=== PATIENT | male | born 1950 ===

== ENCOUNTER 2016-05-31 16:40 | Observation (INO) ==
[2016-05-31] MEDS ORDERED: MORPHINE 2 MG/1 ML SYRINGE IV STA (17:53)
[2016-05-31] MEDS ORDERED: ASPIRIN 325 MG TABLET PO STA (17:53)
[2016-05-31] MEDS ORDERED: ONDANSETRON 4 MG/2 ML VIAL IV STA (17:53)
[2016-05-31] MEDS ORDERED: ALUM/MAG/SIMETH/LIDO VISC 1:1 30 ML BOTTLE PO STA (17:53)
[2016-05-31] MEDS ORDERED: METOPROLOL TARTRATE 25 MG TABLET PO STA (17:53)
[2016-05-31] MEDS ORDERED: NITROGLYCERIN 2% OINT 1 INCH/GM PACK TOP STA (17:53)
--- NOTE | 2016-05-31 18:02 | Emergency Department Note ---
I, Sally Lim, am scribing for, and in the presence of, El Gauthier MD 18: 01. IAbrahan Charles R, MD, personally performed the services described in this documentation, ascribed by Sally Lim in my presence, and it is both accurate and complete [id number] . Arrival - Arrival Chief Complaint: Chest Pain Stated Complaint: CHEST PRESSURE ED Nursing Triage Note: checked in here earlier today with chest pressure but left before he was brought to a room because he felt better after 3 ntg. went home and called dr hess office and told to come back for work up. pt reports not having any pain at present just dont feel well Mode of Arrival: Ambulatory Limitations: No Limitations Source: Patient, Significant other Time Seen by Provider: 05/31/16 17:48 - History of Present Illness HPI Narrative: Pt is a 66 y/o male who came back to ED for further evaluation of chest pains that started earlier today. Pt checked in ED earlier today with chest "pressure " but left before he was brought to a room because he felt better after taking 3 nitros. Pt went home, called Dr Vital's office, in which was instructed to come back for work up in ED. Pt reports not having any pain at present but not feeling well. Pt had a cardiac stent placed 2 weeks ago, where his sxs were the same as today. Pt notes having pain on exertion and SOB. No other complaint/pains in ED. Onset (ago): hour(s) Consistency: constant, now resolved Severity: mild, moderate Severity scale (1-10): 4 Quality: aching Allergies/Adverse Reactions: Allergies Allergy/AdvReac Type Severity Reaction Status Date / Time Doxepin [From [place]] Allergy Verified 05/16/16 07:15 Sulfa (Sulfonamide Allergy Swelling Verified 03/09/16 08:48 Antibiotics) of Lip/Tongue/Throat tramadol Allergy Verified 05/16/16 07:15 wheat Allergy Gastrointestinal Verified 05/16/16 07:15 Upset Home Medications: Home Medications Medication Instructions Recorded Confirmed Type Aspirin [Ecotrin] 81 mg PO DAILY 05/16/16 05/31/16 History [place] Dream Cream 1 applic TOP DAILY 05/16/16 05/31/16 History Biofreeze 1 tablet PO DAILY 05/16/16 05/31/16 History Bromelains 750 mg PO DAILY 05/16/16 05/31/16 History Cholecalciferol (Vitamin D3) 2,000 unit PO DAILY 05/16/16 05/31/16 History [Vitamin D3] Diclofenac 1% Gel [Voltaren 1% Gel] 1 applic TOP QID 05/16/16 05/31/16 History Diclofenac/Misoprostol 50-200 1 tablet PO DAILY 05/16/16 05/31/16 History [Arthrotec 50] HYDROcodone/ACETAMIN 10-325 [[place] 1 tablet PO Q4H PRN 05/16/16 05/31/16 History 10-325] Ibuprofen Tab [Motrin Tab] 400 mg PO BID 05/16/16 05/31/16 History LORazepam [Lorazepam] 1 mg PO BID 05/16/16 05/31/16 History Metoprolol Succinate Xl [Toprol Xl] 25 mg PO DAILY 05/16/16 05/31/16 History Mometasone 50 Mcg Nasal [place] 2 spray BOTH NARES DAILY 05/16/16 05/31/16 History [Nasonex Nasal [place]] Tamsulosin [Flomax] 0.4 mg PO DAILY 05/16/16 05/31/16 History amLODIPine [Norvasc] 5 mg PO DAILY 05/16/16 05/31/16 History tiZANidine [Zanaflex] 4 mg PO BID 05/16/16 05/31/16 History Clopidogrel [Plavix] 75 mg PO DAILY #30 tablet 05/17/16 05/31/16 Rx Pantoprazole Tab [Protonix Tab] 40 mg PO DAILY #30 tablet 05/17/16 05/31/16 Rx Coenzyme Q10 100 mg PO DAILY 05/31/16 05/31/16 History Nitroglycerin Sl Tab [Nitrostat] 0.4 mg SL Q5M PRN 05/31/16 05/31/16 History Review of System - Review of System 12 point system: reviewed and no additional remarkable complaints except as stated - Review of System Constitutional: Absent: chills, fever Respiratory: Present: respiratory distress (SOB) Cardiovascular: Present: chest pain (pain with exertion but now resolved). Absent: syncope Gastrointestinal: Absent: abdominal pain, nausea, vomiting Skin: Absent: rash Neurological: Absent: headache Medical,Surgical,& Family Hx - Medical History Cardio: History of: CAD, Hypertension Neurology: No history of: Seizures Gastrointestinal: History of: GERD Musculoskeletal: History of: Musculoskeletal Problems (arthritis) - Surgical History Cardiac Surgeries: Sugical HX of: Cardiac Catheterization (stent) - Social History Smoking Status: Former smoker Exam Vital Signs: Vital Signs Temperature 98.5 F 05/31/16 16:57 Pulse Rate 80 05/31/16 20:30 Respiratory Rate 21 05/31/16 20:30 Blood Pressure 149/83 05/31/16 20:30 O2 Sat by Pulse Oximetry 96 05/31/16 20:30 - General General appearance: alert, in no apparent distress - Head Head exam: Present: atraumatic, normocephalic - Eye Eye exam: Present: PERRL, EOMI - ENT ENT exam: Present: mucous membranes moist. Absent: mucous membranes dry - Neck Neck exam: Present: full ROM. Absent: tenderness - Chest Chest inspection: Present: symmetric chest wall rise. Absent: tenderness - Respiratory Respiratory exam: Present: normal lung sounds bilaterally. Absent: respiratory distress - Cardiovascular Cardiovascular exam: Present: regular rate, normal rhythm, normal heart sounds - Abdominal Exam Abdominal exam: Present: soft. Absent: tenderness - Extremities Exam Extremities exam: Present: full ROM. Absent: tenderness, pedal edema - Neurological Exam Neurological exam: Present: alert, oriented X3, CN II-XII intact. Absent: motor sensory deficit - Psychiatric Psychiatric exam: Present: normal affect, normal mood - Skin Skin exam: Present: warm, dry Course - Consultations Consultation #1: Dr. Smith will admit the patient Time: 20:39 Results - Labs CBC & BMP: 05/31/16 18:18 05/31/16 18:18 Lab Results: I have reviewed the patients labs Labs: Laboratory Tests 05/31/16 18:18 RBC 3.57 L Hgb 8.7 L Hct 29.5 L MCV 82.6 L MCH 24 L MCHC 29.5 L Lymph % (Auto) 14.2 L Lymph # (Auto) 1.2 L - Diagnostic Findings Procedure: Chest x-ray: report reviewed by me (No acute cardioconverter pathology. Mild dextroscoliosis.) Disposition Clinical Impression: Chest pain Case discussed with: patient Disposition: Still a Patient Condition: Stable Time of Disposition: 20:40 Contact your physician if you experience:: fever over 101, Difficulty voiding, Redness or swelling, Nausea/Vomiting, Shortness of breath, Bleeding, pain uncontrolled by pain medications, Other Return to the Emergency Department if:: fever over 101, Difficulty voiding, Redness or swelling, Nausea/Vomiting, Shortness of breath, Bleeding, pain uncontrolled by pain medications, Other
[2016-05-31 18:42] LABS: Basophils % 0.5 % (0.0-0.8); Eosinophils # 0.8 10*3/uL (0.0-0.87); Eosinophils % 9.6 % (0.00-10.9); Hematocrit 29.5 VOL% (42.0-52.0); Hemoglobin 8.7 GM/DL (14.0-18.0); Immature Granulocytes % 0.6 %; Immature Granulocytes Absolute 0.05 #; Lymphocytes # 1.2 10*3/uL (1.4-4.0); Lymphocytes % 14.2 % (21.2-54.2); Mean Corpuscular HGB Conc 29.5 GM/DL (32-36); Mean Corpuscular Hemoglobin 24 PG (27-34); Mean Corpuscular Volume 82.6 FL (87-102); Mean Platelet Volume 10.2 FL (9.6-12.0); Monocytes # 0.5 10*3/uL (0.11-0.8); Monocytes % 6.2 % (1.7-12.7); Neutrophils # 5.6 10*3/uL (1.4-7.4); Neutrophils % 68.9 % (38.7-73.9); Platelet Count 387 10*3/uL (130-400); Red Blood Count 3.57 10*6/uL (3.8-5.5); Red Cell Distribution Width 14.6 % (9.3-17.3); White Blood Count 8.1 10*3/uL (4.5-13.71)
[2016-05-31] MEDS ORDERED: LORazepam 1 MG TABLET PO STA (18:53)
[2016-05-31] MEDS ORDERED: KETOROLAC 30 MG/1 ML VIAL IV STA (18:53)
[2016-05-31] MEDS ORDERED: METHOCARBAMOL 500 MG TABLET PO STA (18:54)
[2016-05-31 18:55] LABS: D-Dimer 0.7 MG/L FEU; PT Patient Result 10.4 SECS
--- NOTE | 2016-05-31 18:56 | XRay Report ---
Exam: XR chest 1V portable Date: 05/31/2016 5:53 PM Indication: Chest pain Comparison: 05/15/2016 Technical:AP portable Findings: External cardiac leads are present. Lateral marginal osteophytes mild dextroscoliosis present. No obvious infiltrate or effusion. Mediastinum reveals a few tiny calcified nodes. No pneumothorax. Heart normal in size. Impression: 1. No acute cardioconverter pathology 2. Mild dextroscoliosis PROCEDURE INTERPRETED AT [facility] DEPARTMENT OF RADIOLOGY Final Report Signed by: Dr. Lambert Orozco
[2016-05-31] MEDS ORDERED: METOPROLOL TARTRATE 25 MG TABLET ONE (19:04)
[2016-05-31] MEDS ORDERED: NITROGLYCERIN 2% OINT 1 INCH/GM PACK TOP ONE (19:04)
[2016-05-31] MEDS ORDERED: KETOROLAC 30 MG/1 ML VIAL ONE (19:05)
[2016-05-31] MEDS ORDERED: METHOCARBAMOL 500 MG TABLET ONE (19:05)
[2016-05-31] MEDS ORDERED: ASPIRIN 325 MG TABLET ONE (19:05)
[2016-05-31] MEDS ORDERED: ALUM/MAG/SIMETH/LIDO VISC 1:1 30 ML BOTTLE PO ONE (19:05)
[2016-05-31] MEDS ORDERED: LORazepam 1 MG TABLET ONE (19:05)
[2016-05-31 19:16] LABS: Alanine Aminotransferase 21 U/L (16-61); Alkaline Phosphatase 88 U/L (45-117); Aspartate Amino Transferase 17 U/L (0-37); Bilirubin,Total < 0.39 MG/DL (0.2-1.0); Blood Urea Nitrogen 13 MG/DL (7-18); Calcium 8.7 MG/DL (8.5-10.1); Glucose 104 MG/DL (74-106); Magnesium 2.3 MG/DL (1.8-2.4); Osmolality,Calculated 282.1 MOS/KG (273-304); Potassium 3.9 MMOL/L (3.5-5.1); Sodium 142 MMOL/L (136-145); Total Protein 6.8 G/DL (6.4-8.3)
[2016-05-31 19:27] LABS: Apearance,Urine CLEAR (Clear); Bilirubin,Urine Negative (Negative); Blood, Urine Negative (Negative); Glucose,Urine (UA) Negative (Negative); Ketones,Urine Negative (Negative); Nitrite,Urine Negative (Negative); Protein,Urine Negative; Urine Color Straw (Yellow); Urine Specific Gravity 1.005 (1.001-1.035); Urine Urobilinogen < 2.0 EU/DL (0.2-1.0); WBC,Urine <1 /HPF (0-6)
[2016-05-31] MEDS ORDERED: MAGNESIUM SULF RIDER 4 GM in PREMIX 1 EACH IV PRN (22:27)
[2016-05-31] MEDS ORDERED: MORPHINE 2 MG/1 ML SYRINGE IV PRN (22:27)
[2016-05-31] MEDS ORDERED: NITROGLYCERIN SL 0.4 MG TABLET SL PRN (22:27)
[2016-05-31] MEDS ORDERED: ONDANSETRON 4 MG/2 ML VIAL IV PRN (22:27)
[2016-05-31] MEDS ORDERED: MAGNESIUM SULF RIDER 2 GM in PREMIX 1 EACH IV PRN (22:27)
[2016-05-31] MEDS ORDERED: POTASSIUM CHLORIDE 20 MEQ TABLET PO PRN (22:27)
[2016-05-31] MEDS ORDERED: PNEUMOCOCCAL VACCINE (13 VALENT) 0.5 ML SYRINGE IM ONE (22:40)
[2016-05-31] MEDS: NITROGLYCERIN 2% OINT 1 INCH/GM PACK TOP SCH (23:27)
[2016-05-31] MEDS: ENOXAPARIN 100 MG/ML SYRINGE SUBCUT SCH (23:27)
[2016-05-31] MEDS: SODIUM CHLORIDE 0.9% 1,000 ML IV SCH (23:31)
[2016-06-01 02:29] LABS: Basophils # 0.1 10*3/uL (0.0-0.2); Basophils % 0.9 % (0.0-0.8); Eosinophils # 0.8 10*3/uL (0.0-0.87); Eosinophils % 14.2 % (0.00-10.9); Hematocrit 29.4 VOL% (42.0-52.0); Hemoglobin 8.3 GM/DL (14.0-18.0); Immature Granulocytes % 0.7 %; Immature Granulocytes Absolute 0.04 #; Lymphocytes # 1.5 10*3/uL (1.4-4.0); Lymphocytes % 28.2 % (21.2-54.2); Mean Corpuscular HGB Conc 28.2 GM/DL (32-36); Mean Corpuscular Hemoglobin 25 PG (27-34); Mean Corpuscular Volume 88.3 FL (87-102); Mean Platelet Volume 10.4 FL (9.6-12.0); Monocytes # 0.5 10*3/uL (0.11-0.8); Monocytes % 8.6 % (1.7-12.7); Neutrophils # 2.5 10*3/uL (1.4-7.4); Neutrophils % 47.4 % (38.7-73.9); Platelet Count 343 10*3/uL (130-400); Red Blood Count 3.33 10*6/uL (3.8-5.5); Red Cell Distribution Width 14.6 % (9.3-17.3); White Blood Count 5.4 10*3/uL (4.5-13.71)
[2016-06-01 02:46] LABS: Alanine Aminotransferase 16 U/L (16-61); Albumin 2.7 G/DL (3.4-5.0); Alkaline Phosphatase 80 U/L (45-117); Aspartate Amino Transferase 16 U/L (0-37); Bilirubin,Total < 0.39 MG/DL (0.2-1.0); Blood Urea Nitrogen 12 MG/DL (7-18); Calcium 8.1 MG/DL (8.5-10.1); Cholesterol 169 MG/DL (50-200); Glucose 96 MG/DL (74-106); HDL Cholesterol 38 MG/DL (40-60); Magnesium 2.4 MG/DL (1.8-2.4); Osmolality,Calculated 287.7 MOS/KG (273-304); Potassium 4.1 MMOL/L (3.5-5.1); Risk Ratio 4.45; Sodium 145 MMOL/L (136-145); Total Protein 5.6 G/DL (6.4-8.3); Triglycerides 178 MG/DL (2-150); VLDL CHOLESTEROL 35.6 MG/DL
[2016-06-01 03:32] LABS: Eosinophils 13 % (0-10); Lymphocytes 26 % (20-55); Platelet Estimate Normal; Segmented Neutrophils 53 % (50-85); Total Cells Counted 100
[2016-06-01] MEDS: NITROGLYCERIN 2% OINT 1 INCH/GM PACK TOP SCH ×2 (06:25→11:04)
--- NOTE | 2016-06-01 07:50 | XRay Report ---
History is short of breath Comparison 05/31/2016 The heart is normal in size No congestive failure or confluent infiltrates seen Impression: Stable portable chest PROCEDURE INTERPRETED AT [facility] DEPARTMENT OF RADIOLOGY Final Report Signed by: Dr. Sulema Driver
[2016-06-01] MEDS ORDERED: MAGNESIUM SULF RIDER 2 GM in PREMIX 1 EACH IV PRN (08:08)
[2016-06-01] MEDS ORDERED: POTASSIUM CHLORIDE RIDER 10 MEQ in PREMIX 1 EACH IV PRN (08:08)
[2016-06-01] MEDS ORDERED: diphenhydrAMINE CAP 25 MG CAPSULE PO ONE (08:08)
[2016-06-01] MEDS ORDERED: DIAZEPAM 5 MG TABLET PO ONE (08:08)
--- NOTE | 2016-06-01 08:09 | Cardiology History & Physical ---
Assessment and Plan - Time spent with patient Time spent with patient: Less than 30 minutes (1) CAD (coronary artery disease) Status: Chronic Assessment and plan: Dr. Vital will perform cardiac catheterization today. Current Visit: Yes Qualifiers: Coronary Disease-Associated Artery/Lesion type: [place] artery (2) S/P PCI-RCA Status: Chronic Assessment and plan: Recent PCI to RCA. Continues to take aspirin and Plavix. Dr. Vital cath today. Current Visit: Yes (3) Hypertension Status: Chronic Assessment and plan: Usually well controlled. Will adjust medications accordingly during hospital stay. Current Visit: Yes (4) Dyslipidemia Status: Chronic Assessment and plan: Continue lipid-lowering agent. We'll not repeat a fasting lipid profile as he had one within the past month. Current Visit: Yes (5) Chest pain Status: Acute Assessment and plan: Concerning for angina. Will be taken to the cardiac catheterization lab today. Currently chest pain-free Current Visit: Yes History of Present Illness Chief complaint: chest pain, known CAD History of present illness: Mr. Cain is a 66 year old male male routinely followed by Dr. Vital. Risk factors include: Known coronary artery disease, hypertension, dyslipidemia. Patient underwent elective cardiac catheterization requiring PCI to the mid right coronary artery May 16, 2016. He tolerated the procedure well with her claudication was discharged home in stable condition. Patient return to the emergency room yesterday. He states on Sunday night, he began to experience chest pain in the center of his chest without radiation. He did not cause nausea vomiting or diaphoresis. He was walking when the discomfort occurred and wrist relieve the discomfort. He did not have any symptoms until yesterday afternoon. He was walking into the bank when he began to experience the same type of chest pain in the center of his chest without radiation. Again , he did not cause nausea vomiting or diaphoresis. He simply felt weak and as if he was having a heart attack. He rates the discomfort as a 7 on a scale of 1 -10. He can identify no aggravating factors nor really any alleviating factors. He did take 3 nitroglycerin and eventually the chest discomfort went away after approximately 30 minutes. He sought emergency room attention. His cardiac biomarkers have been negative and his EKG is unremarkable. He has been house overnight on our telemetry unit. He is currently chest pain-free. He continues to take aspirin and Plavix daily without fail. Dr. Vital is present and has seen and examined the patient. He has discussed risks and benefits of cardiac catheterization with Mr. Cain. He is agreeable we will proceed this morning. Home Medications Medication Instructions Recorded Confirmed Type Aspirin [Ecotrin] 81 mg PO DAILY 05/16/16 05/31/16 History [place] Dream Cream 1 applic TOP DAILY 05/16/16 05/31/16 History Biofreeze 1 tablet PO DAILY 05/16/16 05/31/16 History Cholecalciferol (Vitamin D3) 2,000 unit PO DAILY 05/16/16 05/31/16 History [Vitamin D3] Diclofenac 1% Gel [Voltaren 1% Gel] 1 applic TOP QID 05/16/16 05/31/16 History Diclofenac/Misoprostol 50-200 1 tablet PO DAILY 05/16/16 05/31/16 History [Arthrotec 50] HYDROcodone/ACETAMIN 10-325 [[place] 1 tablet PO Q4H PRN 05/16/16 05/31/16 History 10-325] Ibuprofen Tab [Motrin Tab] 400 mg PO BID 05/16/16 05/31/16 History LORazepam [Lorazepam] 1 mg PO BID 05/16/16 05/31/16 History Metoprolol Succinate Xl [Toprol Xl] 25 mg PO DAILY 05/16/16 05/31/16 History Mometasone 50 Mcg Nasal [place] 2 spray BOTH NARES DAILY 05/16/16 05/31/16 History [Nasonex Nasal [place]] Tamsulosin [Flomax] 0.4 mg PO DAILY 05/16/16 05/31/16 History amLODIPine [Norvasc] 5 mg PO DAILY 05/16/16 05/31/16 History tiZANidine [Zanaflex] 2 mg PO BID 05/16/16 05/31/16 History Clopidogrel [Plavix] 75 mg PO DAILY #30 tablet 05/17/16 05/31/16 Rx Pantoprazole Tab [Protonix Tab] 40 mg PO DAILY #30 tablet 05/17/16 05/31/16 Rx Amitriptyline [Elavil] 25 mg PO DAILY 05/31/16 05/31/16 History Coenzyme Q10 100 mg PO DAILY 05/31/16 05/31/16 History HYDROcodone/ACETAMIN 10-325 [[place] 1 tablet PO Q6H 05/31/16 05/31/16 History 10-325] Nitroglycerin Sl Tab [Nitrostat] 0.4 mg SL Q5M PRN 05/31/16 05/31/16 History Allergies Allergy/AdvReac Type Severity Reaction Status Date / Time Doxepin [From [place]] Allergy Verified 05/16/16 07:15 Sulfa (Sulfonamide Allergy Swelling Verified 03/09/16 08:48 Antibiotics) of Lip/Tongue/Throat tramadol Allergy Verified 05/16/16 07:15 wheat Allergy Gastrointestinal Verified 05/16/16 07:15 Upset Review of systems: REVIEW OF SYSTEMS: - Constitutional Constitutional: Present: Fatigue. Absent: syncope, anorexia, night sweats - EENT Eyes: Absent: blurry vision, loss of vision, diplopia Ears: Absent: decreased hearing, ear pain, ear discharge - Cardiovascular Cardiovascular: Present: chest pain with exertion, denies dyspnea on exertion, edema, palpitations. Absent: chest pain with deep breath, claudication, - Respiratory Respiratory: Denies HOGUE, cough. Absent: wheezing, hemoptysis, change in phlegm color - Gastrointestinal Gastrointestinal: Absent: abdominal pain, hematemesis, hematochezia, melena, change in bowel habits, nausea - Genitourinary Genitourinary: Absent: difficulty urinating, dysuria, urinary hesitancy, flank pain - Musculoskeletal Musculoskeletal: Present: back pain and neck pain Absent: joint swelling, muscle cramps, muscle weakness - Neurological Neurological: Present: normal gait without frequent falls. Absent: dizziness, hemiparesis - Psychiatric Psychiatric: Absent: anxiety, depression, difficulty concentrating - Endocrine Endocrine: Present: fatigue. Absent: cold intolerance, heat intolerance, polyuria, polyphagia, polydipsia - Hematologic/Lymphatic Hematologic/Lymphatic: Present: easy bruising. Absent: easy bleeding, easy bruisability -Integumentary Integumentary: Absent: lesions, rashes, skin breakdown Medical,Surgical,& Family Hx - Medical History Cardio: History of: CAD, Hypertension Neurology: No history of: Seizures Gastrointestinal: History of: GERD Musculoskeletal: History of: Musculoskeletal Problems (arthritis) - Surgical History Cardiac Surgeries: Sugical HX of: Cardiac Catheterization (stent ON 05/16/16) Thoracic Surgeries: Patient denies;: Organ Transplant, Lobectomy Abdominal Surgeries: Patient denies: Abdominal Surgery - Social History Smoking Status: Former smoker Have you smoked in the last 12 months: No Frequency of Alcohol Use: None Type of Drug Use: None Cardiology Physical Exam - Constitutional Vitals: Vital Signs Temp Pulse Resp BP Pulse Ox 97 F L 69 20 150/68 99 06/01/16 08:00 06/01/16 08:00 06/01/16 08:00 06/01/16 08:00 06/01/16 08:00 Intake and Output 05/31/16 06/01/16 06/01/16 23:59 07:59 15:59 Other: Voiding Method Toilet # Voids 2 Weight 70.307 kg 70.307 kg Patient Weight 06/01/16 23:59 Weight 70.307 kg Exam: General: Appears well with no apparent distress. Pleasant and cooperative. Appears comfortable. HEENT: PERRL, normocephalic, atraumatic. Mucous membranes moist. No jaundice noted. Conjunctiva moist and clear, sclerae anicteric Neck: No JVD/HJR, no thyromegaly or lymphadenopathy noted. No carotid bruit appreciated Cardiac: Regular rate and rhythm. No murmur rub or gallop. Lungs: Clear to auscultation without accessory muscle use to assist the respiratory pattern. Not requiring oxygen. Abdomen: Soft, bowel sounds normoactive. Nontender and nondistended. No abdominal bruit or thrill noted. No masses noted. Musculoskeletal: No fluid collection. Decreased range of motion is noted. Extremities: No clubbing, cyanosis noted. No edema noted. Upper extremity pulses 2+. Lower extremity pulses 2+. Capillary refill less than 3 seconds. Skin: No unusual lesions or rashes. No skin breakdown appreciated. Neuro: Awake, alert and oriented 3. Moves all extremities well without hemiparesis or paralysis. No essential tremor is appreciated. Result/EKG - Labs CBC & BMP: 06/01/16 01:51 06/01/16 01:51 Lab Results: I have reviewed the past 24 hour labs Labs: Laboratory Results - last 24 hr 05/31/16 06/01/16 06/01/16 23:32 01:51 01:51 WBC 5.4 D RBC 3.33 L Hgb 8.3 L Hct 29.4 L MCV 88.3 MCH 25 L MCHC 28.2 L RDW 14.6 Plt Count 343 MPV 10.4 Neut % (Auto) 47.4 Lymph % (Auto) 28.2 [place] % (Auto) 8.6 Eos % (Auto) 14.2 H Baso % (Auto) 0.9 H Neut # (Auto) 2.5 Lymph # (Auto) 1.5 [place] # (Auto) 0.5 Eos # (Auto) 0.8 Baso # (Auto) 0.1 Total Counted 100 Immature Gran % 0.7 Nucleated RBC % 0.0 Immature Gran # 0.04 Segmented Neutrophils 53 Lymphocytes 26 Monocytes 8 Eosinophils 13 H Nucleated RBCs # 0.00 Platelet Estimate Normal Pappenheimer Bodies [employer] Technician Sodium 145 Potassium 4.1 Chloride 109 H Carbon Dioxide 29 Anion Gap 11.1 BUN 12 Creatinine 0.90 GFR Calculation 98 BUN/Creatinine Ratio 13.00 Glucose 96 Calculated Osmolality 287.7 Calcium 8.1 L Magnesium 2.4 Total Bilirubin < 0.39 AST 16 ALT 16 Alkaline Phosphatase 80 Troponin I < 0.015 B-Natriuretic Peptide Total Protein 5.6 L Albumin 2.7 L Globulin 2.9 Albumin/Globulin Ratio 0.9 L Triglycerides 178 H Cholesterol 169 LDL Cholesterol 107.0 VLDL Cholesterol 35.6 HDL Cholesterol 38 L Heart Disease Risk Ratio 4.45 06/01/16 06/01/16 01:51 01:51 WBC RBC Hgb Hct MCV MCH MCHC RDW Plt Count MPV Neut % (Auto) Lymph % (Auto) [place] % (Auto) Eos % (Auto) Baso % (Auto) Neut # (Auto) Lymph # (Auto) [place] # (Auto) Eos # (Auto) Baso # (Auto) Total Counted Immature Gran % Nucleated RBC % Immature Gran # Segmented Neutrophils Lymphocytes Monocytes Eosinophils Nucleated RBCs # Platelet Estimate Pappenheimer Bodies Sodium Potassium Chloride Carbon Dioxide Anion Gap BUN Creatinine GFR Calculation BUN/Creatinine Ratio Glucose Calculated Osmolality Calcium Magnesium Total Bilirubin AST ALT Alkaline Phosphatase Troponin I < 0.015 B-Natriuretic Peptide 68 Total Protein Albumin Globulin Albumin/Globulin Ratio Triglycerides Cholesterol LDL Cholesterol VLDL Cholesterol HDL Cholesterol Heart Disease Risk Ratio - Diagnostic Findings Procedure: Chest x-ray: report reviewed by me - EKG EKG results: interpreted by me EKG shows: sinus rhythm
--- NOTE | 2016-06-01 08:22 | EKG Report ---
Stationary ECG Study [facility] ER Test Date: 05/31/2016 5:02:07 PM Pat Name: NICOLE RAMSEY Department: Room: 293 Gender: M Resp Therapist: : 1950 Requested by: [place] Order Number: [id number] Stephen MD: SARAN SALDIVAR Intervals [place] Rate: 76 P: 64 SC: 179 QRS: -11 QRSD: 95 T: 80 QT: 365 QTc: 395 Interpretive Statements SINUS RHYTHM RSR (QR) IN V1/V2 CONSISTENT WITH RIGHT VENTRICULAR CONDUCTION DELAY SEPTAL INFARCT, AGE UNDETERMINED Electronically Signed On 06-01-16 09:56:53 DECK MECHANIC by SARAN SALDIVAR [email or web address]
[2016-06-01] MEDS ORDERED: ASPIRIN EC 81 MG TABLET PO SCH ×2 (09:00)
[2016-06-01] MEDS ORDERED: [UNRECOGNIZED DRUG - OTHER] TOP SCH (09:00)
[2016-06-01] MEDS ORDERED: LORazepam 1 MG TABLET PO SCH (09:00)
[2016-06-01] MEDS ORDERED: TAMSULOSIN 0.4 MG CAPSULE PO SCH (09:00)
[2016-06-01] MEDS ORDERED: BIOFREEZE PO SCH (09:00)
[2016-06-01] MEDS ORDERED: BROMELAINS PO SCH (09:00)
[2016-06-01] MEDS ORDERED: CLOPIDOGREL 75 MG TABLET PO SCH (09:00)
[2016-06-01] MEDS ORDERED: tiZANidine 4 MG TABLET PO SCH (09:00)
[2016-06-01] MEDS ORDERED: PANTOPRAZOLE 40 MG TABLET PO SCH ×2 (09:00)
[2016-06-01] MEDS ORDERED: IBUPROFEN 200 MG TABLET PO SCH (09:00)
[2016-06-01] MEDS ORDERED: amLODIPine 5 MG TABLET PO SCH (09:00)
[2016-06-01] MEDS ORDERED: CHOLECALCIFEROL 1,000 UNIT TABLET PO SCH (09:00)
[2016-06-01] MEDS ORDERED: METOPROLOL SUCCINATE XL 25 MG TABLET PO SCH (09:00)
[2016-06-01] MEDS ORDERED: COENZYME Q10 100 MG CAPSULE PO SCH (09:00)
[2016-06-01] MEDS: MOMETASONE 50 MCG NASAL SPRAY 17 GM BOTTLE BOTH NARES SCH ×2 (09:12→09:22)
[2016-06-01] MEDS: DICLOFENAC 1% GEL 100 GM TUBE TOP SCH ×3 (09:13→16:21)
[2016-06-01] MEDS: ENOXAPARIN 100 MG/ML SYRINGE SUBCUT SCH (10:35)
[2016-06-01] MEDS ORDERED: HEPARIN/NACL 0.9% 2 UNITS/ML 1,000 ML IV ONE (11:32)
[2016-06-01] MEDS ORDERED: DILTIAZEM INJ 100 MG in SODIUM CHLORIDE 0.9% 100 ML IV SCH (11:34)
[2016-06-01] MEDS ORDERED: LIDOCAINE 1% 20 ML VIAL ONE (11:46)
[2016-06-01] MEDS ORDERED: fentaNYL 100 MCG/2 ML VIAL ONE (11:50)
[2016-06-01] MEDS ORDERED: MIDAZOLAM 2 MG/2 ML VIAL ONE (11:50)
--- NOTE | 2016-06-01 12:04 | History and Physical Update ---
Sedation H&P Update - History and Physical H&P was reviewed, the patient examined and there: are no changes in the patients condition since last H&P was completed. - Sedation Plan for Sedation: moderate Patient Consent: Procedure disscussed with patient and patinet has consented., Risks and benefits were discussed with patient,including infection,, bleeding, injury to surrounding structures, seizure, temporary nerve, Patient understands and accepts potential risks/benefits and agrees to, proceed. ASA Class: III Airway Assessment: Class III: Soft palate, base of uvula visible
[2016-06-01] MEDS ORDERED: NITROGLYCERIN DRIP 50 MG/250 ML BOTTLE IV ONE (12:06)
[2016-06-01] MEDS ORDERED: VERAPAMIL 5 MG/2 ML VIAL ONE (12:07)
--- NOTE | 2016-06-01 12:45 | Cardiac Catheterization ---
Date of Procedure:: 06/01/16 Pre-op Diagnosis: Chest pain with recent history stenting Post-op diagnosis: same Procedure: Procedures performed: 1: Left heart catheterization 2: Coronary arteriography 3: Left ventriculography After obtaining informed consent the patient was brought to the cardiac catheterization lab where the right wrist was prepped and draped in the usual sterile fashion. Using intravenous sedation and local anesthesia a needle was inserted into the right radial artery and a guidewire was positioned without difficulty. A 5 [place] sheath was advanced over the guidewire and positioned in the right radial artery without difficulty. Patient was given verapamil and nitroglycerin intra-arterial as a vasodilator. At this point a Arya catheter was advanced over a guidewire under fluoroscopic control to the ascending aorta where the left main coronary ostium was engaged and multiple angiograms were obtained in multiple angulations. Next this catheter was manipulated into the right coronary artery and multiple angiograms of the right coronary artery was undertaken in multiple views. After adequate angiograms the right coronary were obtained this catheter then with the assistance of a guidewire was advanced across the aortic valve into the left ventricle and intraventricular pressures were measured. After adequate ventricular pressures were obtained this catheter was pulled back from the ventricle to the aorta under hemodynamic monitoring and removed. Patient then underwent T R band application 2 mm above the radial skin entry site. 15 mL of air was in injected into the hemo band and the radial sheath was pulled. Air was removed from the TR band and 1 mL intervals until a arterial flash was noted. Additional 2 mL of air were added back to the TR band at this point. The patient tolerated procedure well. His right hand was warm with good capillary fill noted. Patient was transferred to the holding area having suffered no significant immediate complications. Hemodynamics: Please see accompanying data sheet Coronary angiography: Left coronary artery: Left main coronary artery is well-developed and free of significant obstructing lesions. The circumflex coronary artery is a large nondominant vessel that possesses no significant lesions throughout its course. The branches of the circumflex likewise are free of significant obstructing lesions. The left anterior descending coronary artery is large vessel that extends to the apex of the ventricle. The LAD is calcified but no significant flow- limiting stenosis can be identified. The branches of the LAD likewise are free of significant obstructing lesions. Right coronary artery: Right coronary arteries a large dominant vessel that possesses no significant lesions throughout its course. There are 2 intracoronary stents to the mid right coronary both of which are free of significant obstructing lesions. The branches of the right coronary artery are likewise free of significant obstructing lesions. Left ventriculography: After injection of contrast in the left ventricle is noted be of normal size with normal contractility. Mitral and aortic structures appear normal by ventriculography. Conclusions: 1: No significant stenosis noted of the recently placed stent to the right coronary artery without good evidence for significant disease elsewhere. 2: Normal left ventricular end-diastolic pressures at rest Discussion and recommendations: Patient presents with chest discomfort status post recent stenting of the mid right coronary artery. He has no evidence of significant change in the stent since implantation. There is good flow down the vessel. He has nonsignificant disease of the proximal LAD and no other significant disease elsewhere. He has significant neck arthritis which I think is playing some role in the amount of pain that he's having and we will continue our evaluation related to that. Surgeon / Physician: Dominic Vital Estimated blood loss: minimal Specimens: none sent Condition: stable - Medications / Follow-up
[2016-06-01] MEDS ORDERED: HYDROmorphone 2 MG/1 ML VIAL IV PRN (12:47)
--- NOTE | 2016-06-01 12:52 | Discharge Summary ---
Addendum entered and electronically signed by Kelly Hoyt NP 06/01/16 17: 09: Below are the discharge medications patient will resume. He has been instructed to resume all his preadmission medications including the following. Cholecalciferol (Vitamin D3) [Vitamin D3] 2,000 unit PO DAILY Aspirin [Ecotrin] 81 mg PO DAILY tiZANidine [Zanaflex] 2 mg PO BID LORazepam [Lorazepam] 1 mg PO BID Mometasone 50 Mcg Nasal [place] [Nasonex Nasal [place]] 2 spray BOTH NARES DAILY HYDROcodone/ACETAMIN 10-325 [[place] 10-325] 1 tablet PO Q4H PRN PRN Reason: Pain amLODIPine [Norvasc] 5 mg PO DAILY Metoprolol Succinate Xl [Toprol Xl] 12.5 mg PO DAILY Diclofenac/Misoprostol 50-200 [Arthrotec 50] 1 tablet PO DAILY Diclofenac 1% Gel [Voltaren 1% Gel] 1 applic TOP QID Brazilian Dream Cream 1 applic TOP DAILY Clopidogrel [Plavix] 75 mg PO DAILY #30 tablet HYDROcodone/ACETAMIN 10-325 [[place] 10-325] 1 tablet PO Q6H Amitriptyline [Elavil] 25 mg PO DAILY Ibuprofen Tab [Motrin Tab] 400 mg PO BID Tamsulosin [Flomax] 0.4 mg PO DAILY Biofreeze 1 tablet PO DAILY Pantoprazole Tab [Protonix Tab] 40 mg PO DAILY #30 tablet Coenzyme Q10 100 mg PO DAILY Nitroglycerin Sl Tab [Nitrostat] 0.4 mg SL Q5M PRN PRN Reason: Chest Pain Original Note: Hospital Course - Hospital Course Hospital Course: Patient admitted with chest discomfort with a history of recent stenting of the right coronary artery. Serial enzyme studies were negative. Because of his symptoms we brought him back to the Periodontist for reevaluation and he was found to have no evidence of significant problem related to the recent stent placement. There is no other disease to explain the patient's discomfort. He is recovered from his procedure and is ready for discharge at this time. He will see me for follow-up fairly soon for check of his access site. Discharge Plan - Discharge Data Disposition: Disch To Home/Self Care Condition at Discharge: Stable Discharge Diet: heart healthy Activity: resume usual activities as tolerated, other - Discharge Medications No Action Cholecalciferol (Vitamin D3) [Vitamin D3] 2,000 unit PO DAILY Aspirin [Ecotrin] 81 mg PO DAILY tiZANidine [Zanaflex] 2 mg PO BID LORazepam [Lorazepam] 1 mg PO BID Mometasone 50 Mcg Nasal [place] [Nasonex Nasal [place]] 2 spray BOTH NARES DAILY HYDROcodone/ACETAMIN 10-325 [[place] 10-325] 1 tablet PO Q4H PRN PRN Reason: Pain amLODIPine [Norvasc] 5 mg PO DAILY Metoprolol Succinate Xl [Toprol Xl] 12.5 mg PO DAILY Diclofenac/Misoprostol 50-200 [Arthrotec 50] 1 tablet PO DAILY Diclofenac 1% Gel [Voltaren 1% Gel] 1 applic TOP QID Brazilian Dream Cream 1 applic TOP DAILY Clopidogrel [Plavix] 75 mg PO DAILY #30 tablet HYDROcodone/ACETAMIN 10-325 [[place] 10-325] 1 tablet PO Q6H Amitriptyline [Elavil] 25 mg PO DAILY Ibuprofen Tab [Motrin Tab] 400 mg PO BID Tamsulosin [Flomax] 0.4 mg PO DAILY Biofreeze 1 tablet PO DAILY Pantoprazole Tab [Protonix Tab] 40 mg PO DAILY #30 tablet Coenzyme Q10 100 mg PO DAILY Nitroglycerin Sl Tab [Nitrostat] 0.4 mg SL Q5M PRN PRN Reason: Chest Pain - Follow Up or Referral Follow Up: Dominic Vital MD [Physician] - 2 Weeks - Forms/Instructions Exam - Constitutional Vitals: Period Temp Pulse Resp BP Sys/Snow Pulse Ox Last 24 Hr 96.4 F-99.0 F 62-74 15-20 128-157/66-75 96-99 Discharge Results Procedures and tests throughout hospitalization: Pending Orders 06/01/16 08:41 CL heart Routine 06/02/16 04:00 Basic Metabolic Panel IN AM Comp Blood Count Auto Diff IN AM Magnesium IN AM Labs on day of discharge: Labs from last 24 hours 06/01/16 06/01/16 06/01/16 01:51 01:51 01:51 WBC RBC Hgb Hct MCV MCH MCHC RDW Plt Count MPV Neut % (Auto) Lymph % (Auto) [place] % (Auto) Eos % (Auto) Baso % (Auto) Neut # (Auto) Lymph # (Auto) [place] # (Auto) Eos # (Auto) Baso # (Auto) Total Counted Immature Gran % Nucleated RBC % Immature Gran # Segmented Neutrophils Lymphocytes Monocytes Eosinophils Nucleated RBCs # Platelet Estimate Pappenheimer Bodies Sodium 145 Potassium 4.1 Chloride 109 H Carbon Dioxide 29 Anion Gap 11.1 BUN 12 Creatinine 0.90 GFR Calculation 98 BUN/Creatinine Ratio 13.00 Glucose 96 Calculated Osmolality 287.7 Calcium 8.1 L Magnesium 2.4 Total Bilirubin < 0.39 AST 16 ALT 16 Alkaline Phosphatase 80 Troponin I < 0.015 B-Natriuretic Peptide 68 Total Protein 5.6 L Albumin 2.7 L Globulin 2.9 Albumin/Globulin Ratio 0.9 L Triglycerides 178 H Cholesterol 169 LDL Cholesterol 107.0 VLDL Cholesterol 35.6 HDL Cholesterol 38 L Heart Disease Risk Ratio 4.45 06/01/16 05/31/16 01:51 23:32 WBC 5.4 D RBC 3.33 L Hgb 8.3 L Hct 29.4 L MCV 88.3 MCH 25 L MCHC 28.2 L RDW 14.6 Plt Count 343 MPV 10.4 Neut % (Auto) 47.4 Lymph % (Auto) 28.2 [place] % (Auto) 8.6 Eos % (Auto) 14.2 H Baso % (Auto) 0.9 H Neut # (Auto) 2.5 Lymph # (Auto) 1.5 [place] # (Auto) 0.5 Eos # (Auto) 0.8 Baso # (Auto) 0.1 Total Counted 100 Immature Gran % 0.7 Nucleated RBC % 0.0 Immature Gran # 0.04 Segmented Neutrophils 53 Lymphocytes 26 Monocytes 8 Eosinophils 13 H Nucleated RBCs # 0.00 Platelet Estimate Normal Pappenheimer Bodies Public Address System Mechanic Sodium Potassium Chloride Carbon Dioxide Anion Gap BUN Creatinine GFR Calculation BUN/Creatinine Ratio Glucose Calculated Osmolality Calcium Magnesium Total Bilirubin AST ALT Alkaline Phosphatase Troponin I < 0.015 B-Natriuretic Peptide Total Protein Albumin Globulin Albumin/Globulin Ratio Triglycerides Cholesterol LDL Cholesterol VLDL Cholesterol HDL Cholesterol Heart Disease Risk Ratio DS: Provider Date of admission: 05/31/16 21:21 Primary care physician: Margarito Olsen MD Attending physician on admission: Dominic Vital MD Consults: 06/01/16 12:46 Consult to Cardiac Rehabilitation [CONS] Routine Reason for Cardiac Rehabilitation: Risk Factor Modification Discharging clinician: Dominic Vital MD
[2016-06-01] MEDS: SODIUM CHLORIDE 0.9% 1,000 ML IV SCH (16:18)
[2016-06-01 17:16] VITALS: BP 149/69
[2016-06-02] MEDS ORDERED: DICLOFENAC SODIUM 50 MG TABLET PO SCH (09:00)
[2016-06-02] MEDS ORDERED: miSOPROStol 200 MCG TABLET PO SCH (09:00)
== END 2016-06-01 18:00 | disposition home or self-care (01) ==
LOC: N.ED 16:40 → INTOOBSV 21:21 → N.EDINP 21:21 → N.TELEN 22:03
PROVIDERS: ADMIT Internal Medicine Interventional Cardiology; ATTEND Internal Medicine Interventional Cardiology
PROC: CLCCHCL (ICD-10-PCS; 2016-06-01 12:15)

== ENCOUNTER 2018-04-16 06:00 | Inpatient (IN) ==
[2018-04-09 09:30] LABS: Basophils # 0.1 10*3/uL (0.0-0.2); Basophils % 0.8 % (0.0-0.8); Eosinophils # 0.4 10*3/uL (0.0-0.87); Hematocrit 42.5 VOL% (42.0-52.0); Hemoglobin 13.2 GM/DL (14.0-18.0); Immature Granulocytes % 0.3 %; Immature Granulocytes Absolute 0.02 #; Lymphocytes # 0.7 10*3/uL (1.4-4.0); Lymphocytes % 10.9 % (21.2-54.2); Mean Corpuscular HGB Conc 31.1 GM/DL (32-36); Mean Corpuscular Hemoglobin 28 PG (27-34); Mean Corpuscular Volume 91.6 FL (87-102); Mean Platelet Volume 10.2 FL (9.6-12.0); Monocytes # 0.7 10*3/uL (0.11-0.8); Monocytes % 11.6 % (1.7-12.7); Neutrophils # 4.3 10*3/uL (1.4-7.4); Neutrophils % 70.4 % (38.7-73.9); Platelet Count 245 T/CUMM (130-400); Red Blood Count 4.64 MC/CUMM (3.8-5.5); White Blood Count 6.1 T/CUMM (4-12)
[2018-04-09 10:07] LABS: Calcium 8.6 MG/DL (8.5-10.1); Potassium 4.4 MMOL/L (3.5-5.1)
[~2018-04-16 06:00] MED LIST: ERTAPENEM 1,000 MG in SODIUM CHLORIDE 0.9% 100 ML IV ONE
[2018-04-16] MEDS ORDERED: ALVIMOPAN 12 MG CAPSULE ONE (07:12)
[2018-04-16] MEDS ORDERED: ERTAPENEM 1,000 MG VIAL ONE (07:12)
[2018-04-16] MEDS ORDERED: ALVIMOPAN 12 MG CAPSULE PO SCH (08:00)
[2018-04-16] MEDS ORDERED: FAMOTIDINE 20 MG/2 ML VIAL IV ONE (08:19)
[2018-04-16] MEDS ORDERED: FAMOTIDINE 20 MG TABLET ONE (08:24)
[2018-04-16] MEDS ORDERED: DIAZEPAM 5 MG TABLET PO ONE (08:27)
[2018-04-16] MEDS ORDERED: LACTATED RINGERS 1,000 ML IV SCH (08:30)
[2018-04-16] MEDS ORDERED: FAMOTIDINE 20 MG TABLET PO ONE (09:19)
[2018-04-16] MEDS ORDERED: DIAZEPAM 5 MG TABLET ONE (09:22)
[2018-04-16] MEDS ORDERED: INDOCYANINE GREEN 25 MG VIAL IV ONE (13:01)
[2018-04-16] MEDS ORDERED: TISSUE ADHESIVE 1 EACH APPLICATOR TOP ONE ×2 (13:02→16:32)
[2018-04-16] MEDS ORDERED: METHYLENE BLUE 10 ML VIAL IV ONE (13:02)
[2018-04-16] MEDS ORDERED: ONDANSETRON 4 MG/2 ML VIAL ONE ×2 (17:00→17:45)
[2018-04-16] MEDS ORDERED: HYDROmorphone 2 MG/1 ML VIAL ONE (17:00)
[2018-04-16] MEDS: HYDROmorphone 2 MG/1 ML VIAL IV PRN ×3 (17:00→17:20)
[2018-04-16] MEDS ORDERED: ONDANSETRON 4 MG/2 ML VIAL IV PRN ×2 (17:12→18:05)
[2018-04-16] MEDS ORDERED: MEPERIDINE 25 MG/1 ML VIAL IV PRN (17:12)
[2018-04-16 17:28] LABS: Apearance,Urine CLEAR (Clear); Bilirubin,Urine Negative (Negative); Blood, Urine Moderate mg/dL (Negative); Glucose,Urine (UA) Negative (Negative); Ketones,Urine 5 mg/dL (Negative); Nitrite,Urine Negative (Negative); Protein,Urine Negative; RBC,Urine 10 /HPF (0-4); Urine Color Colorless (Yellow); Urine Specific Gravity 1.005 (1.001-1.035); Urine Urobilinogen < 2.0 EU/DL (0.2-1.0); WBC,Urine 37 /HPF (0-6)
[2018-04-16] MEDS ORDERED: PROPOFOL 200 MG/20 ML VIAL IV ONE (17:43)
[2018-04-16] MEDS ORDERED: fentaNYL 100 MCG/2 ML VIAL ONE (17:44)
[2018-04-16] MEDS ORDERED: DEXAMETHASONE 10 MG/1 ML VIAL ONE (17:44)
[2018-04-16] MEDS ORDERED: SEVOFLURANE 1 UNIT/15 MINUTE INH ONE (17:44)
[2018-04-16] MEDS ORDERED: DESFLURANE 1 UNIT/15 MINUTE INH ONE (17:44)
[2018-04-16] MEDS ORDERED: MIDAZOLAM 2 MG/2 ML VIAL ONE (17:44)
[2018-04-16] MEDS ORDERED: ROCURONIUM 100 MG/10 ML VIAL IV ONE (17:45)
[2018-04-16] MEDS ORDERED: LACTATED RINGERS 1,000 ML IV ONE (17:45)
[2018-04-16] MEDS ORDERED: PHENYLEPHRINE 1 MG/10 ML SYRINGE IV ONE (17:45)
[2018-04-16] MEDS ORDERED: NEOSTIGMINE 10 MG/10 ML VIAL ONE (17:45)
[2018-04-16] MEDS ORDERED: GLYCOPYRROLATE 0.4 MG/2 ML VIAL ONE (17:45)
[2018-04-16] MEDS ORDERED: HYDROmorphone 2 MG/1 ML VIAL IV PRN (18:05)
[2018-04-16 19:15] LABS: Basophils # 0.1 10*3/uL (0.0-0.2); Basophils % 0.3 % (0.0-0.8); Hematocrit 40.6 VOL% (42.0-52.0); Immature Granulocytes % 0.5 %; Immature Granulocytes Absolute 0.07 #; Lymphocytes # 0.4 10*3/uL (1.4-4.0); Lymphocytes % 2.4 % (21.2-54.2); Mean Corpuscular Hemoglobin 29 PG (27-34); Mean Platelet Volume 10.6 FL (9.6-12.0); Monocytes # 0.5 10*3/uL (0.11-0.8); Monocytes % 3.1 % (1.7-12.7); Neutrophils # 13.4 10*3/uL (1.4-7.4); Neutrophils % 93.7 % (38.7-73.9); Platelet Count 243 T/CUMM (130-400); Red Blood Count 4.51 MC/CUMM (3.8-5.5); Red Cell Distribution Width 14.3 % (9.3-17.3); White Blood Count 14.3 T/CUMM (4-12)
[2018-04-16 19:18] LABS: Calcium 7.9 MG/DL (8.5-10.1); Potassium 3.9 MMOL/L (3.5-5.1)
[2018-04-16] MEDS: KETOROLAC 15 MG/1 ML VIAL IV SCH (19:29)
[2018-04-16] MEDS: LACTATED RINGERS 1,000 ML IV SCH (19:30)
[2018-04-16] MEDS: tiZANidine 4 MG TABLET PO SCH ×2 (19:34→21:04)
[2018-04-16] MEDS: METOPROLOL SUCCINATE XL 25 MG TABLET PO SCH (21:03)
[2018-04-16] MEDS: ALVIMOPAN 12 MG CAPSULE PO SCH (21:04)
[2018-04-16] MEDS: busPIRone 5 MG TABLET PO SCH (21:04)
[2018-04-16 21:27] LABS: Band Neutrophils 13 % (0-10); Eosinophils 1 % (0-10); Segmented Neutrophils 85 % (50-85); Total Cells Counted 100
[2018-04-16 21:32] LABS: Macrocytosis Slight
[2018-04-16 21:33] LABS: Hypochromasia Slight; Platelet Estimate Normal
[2018-04-16] MEDS: DICLOFENAC 1% GEL 100 GM TUBE TOP SCH (22:08)
[2018-04-17] MEDS: KETOROLAC 15 MG/1 ML VIAL IV SCH ×4 (00:18→13:13)
[2018-04-17] MEDS: LACTATED RINGERS 1,000 ML IV SCH (04:41)
[2018-04-17 05:47] LABS: Basophils % 0.1 % (0.0-0.8); Hematocrit 36.5 VOL% (42.0-52.0); Hemoglobin 11.5 GM/DL (14.0-18.0); Immature Granulocytes % 0.4 %; Immature Granulocytes Absolute 0.06 #; Lymphocytes # 0.5 10*3/uL (1.4-4.0); Lymphocytes % 3.5 % (21.2-54.2); Mean Corpuscular HGB Conc 31.5 GM/DL (32-36); Mean Corpuscular Hemoglobin 28 PG (27-34); Mean Corpuscular Volume 90.1 FL (87-102); Monocytes # 1.6 10*3/uL (0.11-0.8); Monocytes % 11.9 % (1.7-12.7); Neutrophils # 11.4 10*3/uL (1.4-7.4); Neutrophils % 84.1 % (38.7-73.9); Platelet Count 217 T/CUMM (130-400); Red Blood Count 4.05 MC/CUMM (3.8-5.5); Red Cell Distribution Width 14.5 % (9.3-17.3); White Blood Count 13.5 T/CUMM (4-12)
[2018-04-17 06:08] LABS: Osmolality,Calculated 268.1 MOS/KG (273-304); Potassium 4.6 MMOL/L (3.5-5.1)
[2018-04-17 06:36] LABS: Lymphocytes 6 % (20-55); Segmented Neutrophils 84 % (50-85); Total Cells Counted 100
[2018-04-17 06:37] LABS: Hypochromasia 1+; Microcytosis 1+; Platelet Estimate Normal
[2018-04-17] MEDS: METOPROLOL SUCCINATE XL 25 MG TABLET PO SCH (08:41)
[2018-04-17] MEDS: ALVIMOPAN 12 MG CAPSULE PO SCH (08:41)
[2018-04-17] MEDS: tiZANidine 4 MG TABLET PO SCH ×2 (08:42→13:13)
[2018-04-17] MEDS: busPIRone 5 MG TABLET PO SCH (08:42)
[2018-04-17] MEDS: DICLOFENAC 1% GEL 100 GM TUBE TOP SCH (08:44)
[2018-04-17] MEDS ORDERED: TAMSULOSIN 0.4 MG CAPSULE PO SCH (09:00)
[2018-04-17] MEDS ORDERED: FERROUS SULFATE 325 MG TABLET PO SCH (09:00)
[2018-04-17] MEDS ORDERED: amLODIPine 5 MG TABLET PO SCH (09:00)
[2018-04-17] MEDS ORDERED: MULTIVITAMIN (CENTRUM) TABLET PO SCH (09:00)
[2018-04-17] MEDS ORDERED: MOMETASONE 50 MCG NASAL SPRAY 17 GM BOTTLE BOTH NARES SCH (09:00)
[2018-04-17] MEDS ORDERED: COENZYME Q10 100 MG CAPSULE PO SCH (09:00)
[2018-04-17] MEDS ORDERED: ASPIRIN EC 81 MG TABLET PO SCH (09:00)
[2018-04-17] MEDS ORDERED: PANTOPRAZOLE 40 MG VIAL IV SCH (09:00)
[2018-04-17] MEDS ORDERED: ENOXAPARIN 40 MG/0.4 ML SYRINGE SUBCUT SCH (10:39)
[2018-04-17 11:55] VITALS: BP 133/59
[2018-04-17 12:25] LABS: Hematocrit 36.6 VOL% (42.0-52.0); Hemoglobin 11.9 GM/DL (14.0-18.0)
== END 2018-04-17 15:40 | disposition home or self-care (01) | DRG 330 ==
LOC: N.OR 06:00 → N.SDSINP 06:01 → N.3E 16:35
PROVIDERS: ADMIT Surgery; ATTEND Surgery